=== PATIENT | female | born 1965 | race Caucasian/White ===

== ENCOUNTER 2017-04-06 18:33 | Emergency (ER) | payer BC, MEDICAID ==
[~2017-04-06] VITALS: Ht 157.5 cm; Wt 105.0 kg
[2017-04-06] MEDS ORDERED: KETOROLAC 60MG/2ML VIAL IM ONE (23:00)
[2017-04-06 23:40] LABS: BASOPHILS % 0.8 % (0.0-2.0); EOSINOPHILS % 2.7 % (0.0-5.0); HEMATOCRIT. 41.7 % (36.0-48.0); HEMOGLOBIN. 14.4 g/dL (12.0-16.0); LYMPHOCYTES % 30.5 % (20.0-50.0); MEAN CORPUSCULAR HEMOGLOBIN 32.3 pg (28.0-32.0); MEAN CORPUSCULAR VOLUME 93.3 fL (81.0-99.0); MEAN PLATELET VOLUME 7.9 fl (7.4-10.4); PLATELET 282 x1000/uL (130-400); RED BLOOD CELL COUNT 4.47 mill/uL (4.2-5.4); RED CELL DISTRIBUTION WIDTH 13.5 % (11.6-14.6)
[2017-04-06 23:58] VITALS: BP 130/90
[2017-04-06 23:58] LABS: CARBON DIOXIDE 32 mEq/L (21-32); CHLORIDE 104 mEq/L (98-107)
== END 2017-04-07 01:06 | disposition home or self-care (01) ==
LOC: ER 22:34
DX: M54.12 Radiculopathy, cervical region (principal); R51 Headache; M79.601 Pain in right arm; I10 Essential (primary) hypertension
CPT/HCPCS: 36415; 70450; 72125; 80053; 83735; 85025; 96372; 99285; J1885; Z7610

== ENCOUNTER 2017-09-21 18:40 | Emergency (ER) | payer MEDICAID ==
[~2017-09-21] VITALS: Ht 157.5 cm; Wt 104.0 kg
[2017-09-21 23:46] VITALS: BP 122/69
[2017-09-22] MEDS ORDERED: ACETAMINOPHEN 325MG TABLET PO ONE (00:30)
== END 2017-09-22 00:42 | disposition home or self-care (01) ==
LOC: ER 19:00
DX: S39.012A Strain of muscle, fascia and tendon of lower back, initial encounter (principal); H66.90 Otitis media, unspecified, unspecified ear; I10 Essential (primary) hypertension; J02.9 Acute pharyngitis, unspecified; V49.9XXA Car occupant (driver) (passenger) injured in unspecified traffic accident, initial encounter; Y93.89 Activity, other specified; Y99.8 Other external cause status; Y92.410 Unspecified street and highway as the place of occurrence of the external cause
CPT/HCPCS: 99281

== ENCOUNTER → 2020-09-02 | Outpatient (CLI) | payer MEDICAID ==
[~2020-09-02] MED LIST: ASPI-1158 MT; Atenolol PO
== END | disposition home or self-care (01) ==
LOC: LAB 08:56
PROVIDERS: ATTEND Specialist
DX: Z01.812 Encounter for preprocedural laboratory examination (principal); R05 Cough; Z20.828 Contact with and (suspected) exposure to other viral communicable diseases
CPT/HCPCS: 87426

== ENCOUNTER → 2020-09-04 | Day surgery (SDC) | payer MEDICAID ==
[~2020-09-04] VITALS: Ht 160 cm; Wt 99.8 kg
[~2020-09-04] MED LIST changes: +ACETAMINOPHEN 325MG TABLET PO NR; +ACETAMINOPHEN 325MG TABLET PO PRN; +FENTANYL CITRATE/PF 50MCG/ML 2ML VIAL ONE; +HEPARIN SODIUM 1,000 UNIT/1ML VIAL IV ONE; +IODIXANOL 320MG/ML 100 ML BOTTLE IV ONE; +LIDOCAINE HCL 1% 20ML VIAL (Pyxis) INJ ONE; +MIDAZOLAM HCL 2 MG/2 ML VIAL ONE; +NICARDIPINE 100MCG/ML 10ML VIAL (CATH LAB) IV ONE; +NITROGLYCERIN 50MCG/ML 10ML VIAL (CATH LAB) IV ONE
== END | disposition home or self-care (01) ==
LOC: CCL 06:38
PROVIDERS: ATTEND Specialist
DX: I25.110 Atherosclerotic heart disease of native coronary artery with unstable angina pectoris (principal); I10 Essential (primary) hypertension; Z79.82 Long term (current) use of aspirin; Z79.899 Other long term (current) drug therapy; Z87.891 Personal history of nicotine dependence; Z98.890 Other specified postprocedural states
CPT/HCPCS: 93458; C1769; C1893; J1644; J2250; J3010; J3490; Q9967

== ENCOUNTER 2021-04-05 23:55 | Emergency (ER) | payer MEDICAID ==
[~2021-04-05] VITALS: Ht 160 cm; Wt 102.0 kg
[~2021-04-05 23:55] MED LIST changes: -ACETAMINOPHEN 325MG TABLET PO NR; -ACETAMINOPHEN 325MG TABLET PO PRN; -ASPI-1158 MT; +ASPI-1406 MT; -FENTANYL CITRATE/PF 50MCG/ML 2ML VIAL ONE; -HEPARIN SODIUM 1,000 UNIT/1ML VIAL IV ONE; -IODIXANOL 320MG/ML 100 ML BOTTLE IV ONE; -LIDOCAINE HCL 1% 20ML VIAL (Pyxis) INJ ONE; -MIDAZOLAM HCL 2 MG/2 ML VIAL ONE; -NICARDIPINE 100MCG/ML 10ML VIAL (CATH LAB) IV ONE; -NITROGLYCERIN 50MCG/ML 10ML VIAL (CATH LAB) IV ONE
[2021-04-06] MEDS ORDERED: HYDROCODONE/ACETAMINOPHEN 5/325MG TABLET PO STA (01:46)
[2021-04-06] MEDS ORDERED: ONDANSETRON HCL 4MG/2ML INJ IV ONE (02:00)
[2021-04-06] MEDS ORDERED: SODIUM CHLORIDE 0.9% 1,000 ML IV ONE (02:00)
[2021-04-06] MEDS ORDERED: FAMOTIDINE 20MG/2ML VIAL IV ONE (02:00)
[2021-04-06 02:41] LABS: BASOPHILS % 0.8 % (0.0-2.0); EOSINOPHILS % 1.7 % (0.0-5.0); HEMATOCRIT. 39.6 % (36.0-48.0); HEMOGLOBIN. 13.7 g/dL (12.0-16.0); LYMPHOCYTES % 22.5 % (20.0-50.0); MEAN CORPUSCULAR HEMOGLOBIN 32.2 pg (28.0-32.0); MEAN CORPUSCULAR VOLUME 93.1 fL (81.0-99.0); MEAN PLATELET VOLUME 7.9 fl (7.4-10.4); MONOCYTES % 7.8 % (2.0-8.0); NEUTROPHILS % 67.2 % (40.0-76.0); PLATELET 277 x1000/uL (130-400); RED BLOOD CELL COUNT 4.26 mill/uL (4.2-5.4); RED CELL DISTRIBUTION WIDTH 13.6 % (11.6-14.6)
[2021-04-06 02:43] LABS: CHLORIDE 105 mEq/L (98-107)
[2021-04-06 02:47] LABS: CLARITY URINE CLOUDY (CLEAR); COLOR URINE YELLOW (YELLOW); KETONES URINE NEGATIVE (NEGATIVE); LEUKOCYTE ESTERASE URINE NEGATIVE (NEGATIVE); NITRITE URINE NEGATIVE (NEGATIVE); OCCULT BLOOD URINE NEGATIVE (NEGATIVE); PH URINE >=9.0 (4.5-8.0); PROTEIN URINE TRACE (NEGATIVE); SPECIFIC GRAVITY URINE 1.016 (1.005-1.030); UROBILINOGEN URINE 0.2 E.U./dL (0.2-1.0)
[2021-04-06] MEDS ORDERED: ACET-2708 PO (03:15)
[2021-04-06] MEDS ORDERED: ONDA4TAB5 PO (03:15)
[2021-04-06 03:39] VITALS: BP 120/72
== END 2021-04-06 03:59 | disposition home or self-care (01) ==
LOC: ER 23:55
DX: K52.9 Noninfective gastroenteritis and colitis, unspecified (principal)
CPT/HCPCS: 36415; 80053; 81003; 83690; 85025; 96374; 96375; 99284; J2405; J3490; J7030

== ENCOUNTER 2021-07-18 23:14 | Emergency (ER) | payer MEDICAID ==
[~2021-07-18] VITALS: Ht 160 cm; Wt 100.0 kg
[~2021-07-18 23:14] MED LIST changes: +ACET-2708 PO; +ONDA4TAB5 PO
[2021-07-19] MEDS ORDERED: METHOCARBAMOL 500MG TABLET PO ONE (02:15)
[2021-07-19] MEDS ORDERED: HYDROCODONE/ACETAMINOPHEN 5/325MG TABLET PO ONE (02:15)
[2021-07-19] MEDS ORDERED: NAPR-681 MT (03:19)
[2021-07-19] MEDS ORDERED: METH-773 MT (03:19)
[2021-07-19 05:59] VITALS: BP 123/85
== END 2021-07-19 06:00 | disposition home or self-care (01) ==
LOC: ER 23:14
DX: S16.1XXA Strain of muscle, fascia and tendon at neck level, initial encounter (principal); I10 Essential (primary) hypertension; V43.52XA Car driver injured in collision with other type car in traffic accident, initial encounter; Y93.89 Activity, other specified; Y92.488 Other paved roadways as the place of occurrence of the external cause
CPT/HCPCS: 72040; 99283